=== PATIENT | female | born 1955 | race Caucasian/White ===

== ENCOUNTER 2017-11-04 18:38 | Emergency (ER) | payer OTHER, BC ==
[2017-11-04 19:02] VITALS: BP 138/78
--- NOTE | 2017-11-04 19:47 | ER Document Report ---
ED Medical Screen (RME) - General Chief Complaint: Urinary Problem Stated Complaint: BLOOD IN URINE Time Seen by Provider: 11/04/17 19:45 Notes: 62 year old female, chief complaint of hematuria, had flank pain 2 days ago but not today. No fever, dysuria, N/V. 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 Sees [facility]. TRAVEL OUTSIDE OF THE [place] IN LAST 30 DAYS: No - Related Data Allergies/Adverse Reactions: amoxicillin Allergy (Verified 11/04/17 19:46) Physical Exam - Vital signs Vitals: Temp Pulse Resp BP Pulse Ox 98.9 F 67 15 138/78 H 97 11/04/17 19:01 11/04/17 19:01 11/04/17 19:01 11/04/17 19:01 11/04/17 19:01 - Abdominal Inspection: Normal Tenderness: Nontender - Back Back: Normal. No: Tender Course - Vital Signs Vital signs: Temp Pulse Resp BP Pulse Ox 98.9 F 67 15 138/78 H 97 11/04/17 19:01 11/04/17 19:01 11/04/17 19:01 11/04/17 19:01 11/04/17 19:01
[2017-11-04 21:02] LABS: ABSOLUTE BASOPHILS # (AUTO) 0.1 10^3/uL (0.0-0.2); ABSOLUTE EOSINOPHILS # (AUTO) 0.2 10^3/uL (0.0-0.6); ABSOLUTE LYMPHOCYTES (AUTO) 2.3 10^3/uL (0.5-4.7); ABSOLUTE MONOCYTES (AUTO) 0.5 10^3/uL (0.1-1.4); EOSINOPHILS % (AUTO) 2.1 % (0-6); HEMATOCRIT 41.3 % (36.0-47.0); HEMOGLOBIN 14.1 g/dL (12.0-15.5); LYMPHOCYTES % (AUTO) 28.6 % (13-45); MEAN CORPUSCULAR HEMOGLOBIN 30.8 pg (27.0-33.4); MEAN CORPUSCULAR HGB CONC 34.1 g/dL (32.0-36.0); MEAN CORPUSCULAR VOLUME 90 fl (80-97); MONOCYTES % (AUTO) 6.1 % (3-13); RED BLOOD COUNT 4.57 10^6/uL (3.72-5.28); RED CELL DISTRIBUTION WIDTH 13.1 % (11.5-14.0); SEGMENTED NEUTROPHILS % (AUTO) 62.2 % (42-78)
[2017-11-04 21:13] LABS: APPEARANCE,URINE CLEAR; BILIRUBIN,URINE NEGATIVE (NEGATIVE); GLUCOSE, URINE NEGATIVE (NEGATIVE); KETONES,URINE NEGATIVE (NEGATIVE); LEUKOCYTE ESTERASE,URINE NEGATIVE (NEGATIVE); NITRITE,URINE NEGATIVE (NEGATIVE); PROTEIN,URINE NEGATIVE (NEGATIVE); URINE SPECIFIC GRAVITY 1.012; UROBILINOGEN,URINE NEGATIVE mg/dL (<2.0)
[2017-11-04 21:20] LABS: ANION GAP 13 (5-19); BLOOD UREA NITROGEN 19 mg/dL (7-20); CARBON DIOXIDE 26 mmol/L (22-30); CHLORIDE 105 mmol/L (98-107); CREATININE RESULT 1.18 mg/dL (0.52-1.25); GLUCOSE 115 mg/dL (75-110); POTASSIUM 3.7 mmol/L (3.6-5.0); SODIUM 143.6 mmol/L (137-145)
[2017-11-04 21:25] LABS: WBC,URINE RARE /HPF
--- NOTE | 2017-11-04 23:49 | RADIOLOGY REPORT (SQ) ---
Exam: CT abdomen pelvis without contrast. Reason for exam: Hematuria. COMPARISON: None. TECHNIQUE: No contrast. Coronal and sagittal reformat. 615 DLP dose reduction. Limitations: None. FINDINGS: No acute findings. No obstructive stone. Left nephrectomy. No free fluid. Surgical clips of the left paracentral retroperitoneum. Moderate colonic diverticulosis. Normal appendix. Moderate hepatic steatosis. 2 cm bilateral inguinal fat only herniation. Minimal lumbar levoconvex convexity. Mild lumbar levo convexity. Mild disc desiccation between the L1 and L5 levels. Inferior chest and unenhanced [id number]-[id number] structures appear otherwise grossly intact. IMPRESSION: No acute findings. Left nephrectomy. Moderate colonic diverticulosis.
--- NOTE | 2017-11-04 23:57 | ER Document Report ---
ED GI/ - General Chief Complaint: Urinary Problem Stated Complaint: BLOOD IN URINE Time Seen by Provider: 11/04/17 19:45 Notes: Patient is a 62-year-old female comes emergency department for chief complaint of hematuria, this happened just prior to arrival, she states she had flank pain a couple of days ago but none today. Denies fever, dysuria, nausea or vomiting. She has a history of left nephrectomy due to kidney mass years ago. She is previously seen [facility]. She states she has had CAT scan screenings over the years occasionally and these were normal. TRAVEL OUTSIDE OF THE [place] IN LAST 30 DAYS: No - Related Data Allergies/Adverse Reactions: amoxicillin Allergy (Verified 11/04/17 19:46) Past Medical History - General Information source: Patient - Social History Smoking Status: Never Smoker Chew tobacco use (# tins/day): No Frequency of alcohol use: None Drug Abuse: None Lives with: Family Family History: Reviewed & Not Pertinent Patient has suicidal ideation: No Patient has homicidal ideation: No Renal/ Medical History: Reports: Other - Left nephrectomy secondary to mass on the kidney. Denies: Hx Peritoneal Dialysis Past Surgical History: Reports: Hx Genitourinary Surgery - Left nephrectomy - Immunizations Immunizations up to date: Yes Hx Diphtheria, Pertussis, Tetanus Vaccination: Yes Review of Systems - Review of Systems Constitutional: No symptoms reported EENT: No symptoms reported Cardiovascular: No symptoms reported Respiratory: No symptoms reported Gastrointestinal: No symptoms reported Genitourinary: See HPI Female Genitourinary: No symptoms reported Musculoskeletal: No symptoms reported Skin: No symptoms reported Hematologic/Lymphatic: No symptoms reported Neurological/Psychological: No symptoms reported Physical Exam - Vital signs Vitals: Temp Pulse Resp BP Pulse Ox 98.9 F 67 15 138/78 H 97 11/04/17 19:01 11/04/17 19:01 11/04/17 19:01 11/04/17 19:01 11/04/17 19:01 Interpretation: Normal - General General appearance: Appears well, Alert In distress: None - HEENT Head: Normocephalic, Atraumatic Eyes: Normal Pupils: PERRL - Respiratory Respiratory status: No respiratory distress Chest status: Nontender Breath sounds: Normal Chest palpation: Normal - Cardiovascular Rhythm: Regular Heart sounds: Normal auscultation Murmur: No - Abdominal Inspection: Normal Distension: No distension. No: Distended Bowel sounds: Normal Tenderness: Nontender. No: Tender, Guarding Organomegaly: No organomegaly - Back Back: Normal, Nontender. No: Tender - Extremities General upper extremity: Normal inspection, Nontender, Normal color, Normal ROM , Normal temperature General lower extremity: Normal inspection, Nontender, Normal color, Normal ROM , Normal temperature, Normal weight bearing. No: Mishel's sign - Neurological Neuro grossly intact: Yes Cognition: Normal Orientation: AAOx4 Kim Coma Scale Eye Opening: Spontaneous Rewey Coma Scale Verbal: Oriented Kim Coma Scale Motor: Obeys Commands Kim Coma Scale Total: 15 Speech: Normal Motor strength normal: LUE, RUE, LLE, RLE Sensory: Normal - Psychological Associated symptoms: Normal affect, Normal mood - Skin Skin Temperature: Warm Skin Moisture: Dry Skin Color: Normal Course - Re-evaluation Re-evalutation: CBC unremarkable, chemistry unremarkable except for mild renal insufficiency which is expected with a single kidney. Urinalysis evidence of hematuria but no evidence of infection. Discussed with patient, she is very concerned because of her history of cancer, has not had any recent screening CAT scans, as a result CAT scan was performed. CAT scan showing no acute abnormalities. Incidental findings were discussed with patient in detail. Provided with a copy of her report. Advised her to follow closely with urology for additional evaluation of hematuria, patient states she will definitely do this shortly. Discussed return precautions, patient states understanding and agreement. - Vital Signs Vital signs: Temp Pulse Resp BP Pulse Ox 98.9 F 67 15 138/78 H 97 11/04/17 19:01 11/04/17 19:01 11/04/17 19:01 11/04/17 19:01 11/04/17 19:01 - Laboratory Result Diagrams: 11/04/17 20:25 11/04/17 20:25 Laboratory results interpreted by me: 11/04/17 11/04/17 20:25 20:30 Est GFR ( Amer) 57 L Est GFR (Non-Af Amer) 47 L Glucose 115 H Urine Blood MODERATE H Discharge - Discharge Clinical Impression: Hematuria Condition: Stable Disposition: HOME, SELF-CARE Additional Instructions: No infection is seen on labs, labs do not show any abnormalities, CAT scan does not show any mass, obstruction, stone, or concerning abnormality. Please follow -up with urology for additional evaluation of hematuria. Return to the emergency department for any concerning or worsening symptoms including fever, vomiting, severe pain, passing out, or any other concerning symptoms.
== END 2017-11-05 00:05 | disposition home or self-care (01) ==
LOC: ER 18:38
DX: R31.9 Hematuria, unspecified (principal)
CPT/HCPCS: 36415; 76380; 80048; 81001; 85025; 99284